=== PATIENT | male | born 1955 | race African-American/Black ===

== ENCOUNTER 2018-05-05 12:28 | Emergency (ER) | payer BC ==
[2018-05-05] MEDS: BUPIVACAINE 0.25% (MPF) 30 ML INJ INJ (13:20)
[2018-05-05] MEDS ORDERED: BUPIVACAINE 0.25% (MPF) 10 ML 10 ML VIAL INJ (13:30)
== END 2018-05-05 13:47 | disposition home or self-care (01) ==
LOC: FTE 12:28
DX: M62.830 Muscle spasm of back (principal); J45.909 Unspecified asthma, uncomplicated; J44.9 Chronic obstructive pulmonary disease, unspecified; F17.210 Nicotine dependence, cigarettes, uncomplicated; R40.2412 Glasgow coma scale score 13-15, at arrival to emergency department
CPT/HCPCS: 20552; 99283-25

== ENCOUNTER 2019-06-23 13:11 | Emergency (ER) | payer BC | END 2019-06-23 14:58 | disposition home or self-care (01) | LOC: E/R 14:58 | DX: M79.672 Pain in left foot (principal); J44.9 Chronic obstructive pulmonary disease, unspecified; F17.210 Nicotine dependence, cigarettes, uncomplicated | CPT/HCPCS: 73630; 73630-LT; 99283-25 ==